=== PATIENT | female | born 1960 | race Caucasian/White ===

== ENCOUNTER 2020-03-02 07:03 | Outpatient (CLI) | payer BC, OTHER, SELFPAY ==
--- NOTE | ~2020-03-02 | MM_ITS ---
EXAMINATION: MM screening [facility] BI w mickey HISTORY: Screening mammogram TECHNIQUE: Craniocaudal and mediolateral oblique 3-D tomosynthesis images were obtained and synthetic 2-D images were generated. CAD analysis was submitted and interpreted. COMPARISON: 02/28/2019, 02/22/2018, 01/24/2018 BREAST PARENCHYMAL COMPOSITION: The breasts are heterogeneously dense, which may obscure small masses . FINDINGS: RIGHT BREAST: There is no evidence of suspicious mass, calcification, or architectural distortion to suggest malignancy. There has been no significant interval change. LEFT BREAST: An asymmetry is present in the posterior third of the inner left breast on the craniocau amirah view. IMPRESSION: 1. Left breast asymmetry on the craniocaudal view. 2. Additional mammographic views and possible breast ultrasound are recommended. BI-RADS Category 0: Incomplete: Needs additional imaging evaluation. Reviewed, dictated and finalized at location A. BREEDER IMPRESSION: 1. Left breast asymmetry on the craniocaudal view. 2. Additional mammographic views and possible breast ultrasound are recommended . BI-RADS Category 0: Incomplete: Needs additional imaging evaluation.
== END 2020-03-02 07:04 | disposition home or self-care (01) ==
PROVIDERS: PCP Internal Medicine; Visit Provider Obstetrics & Gynecology
DX: Z12.31 Encounter for screening mammogram for malignant neoplasm of breast (principal)
CPT/HCPCS: 77063; 77067

== ENCOUNTER 2020-03-05 08:56 | Outpatient (CLI) | payer BC, OTHER, SELFPAY ==
--- NOTE | ~2020-03-05 | MM_ITS ---
EXAMINATION: MM diagnostic [facility] w mickey HISTORY: Left breast asymmetry on screening mammogram TECHNIQUE: Additional 3-D tomosynthesis images of the left breast were performed and synthetic 2-D im ages were generated. CAD analysis was submitted and interpreted. COMPARISON: 03/02/2020, 02/28/2019,01/24/2018, 01/16/2017 FINDINGS: No persistent asymmetry is identified with spot compression of the left breast. There is no suspicious mass, calcification, or architectural distortion. IMPRESSION: 1. No mammographic evidence of malignancy. 2. Recommend routine screening mammography in one year. BI-RADS Category 1: Negative Reviewed, dictated and finalized at location A. 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
== END 2020-03-05 08:57 | disposition home or self-care (01) ==
LOC: CHSIMG 08:58
PROVIDERS: PCP Internal Medicine; Visit Provider Obstetrics & Gynecology
DX: R92.8 Other abnormal and inconclusive findings on diagnostic imaging of breast (principal)
CPT/HCPCS: 77061; 77065; G0279

== ENCOUNTER 2020-09-14 11:35 | Emergency (ER) | payer OTHER, SELFPAY ==
[2020-09-14 11:52] VITALS: BP 142/96; PULSE 99; RESP 16; O2SAT 96
--- NOTE | 2020-09-14 11:57 | ED.SKABFB ---
HPI - Skin/Abscess/Foreign Bdy General Chief complaint: Skin/Abscess/Foreign Body Stated complaint: CUT FINGER ON KNIFE Source: patient and family Mode of arrival: ambulatory History of Present Illness HPI narrative: 59-year-old female presents after she accidentally cut her right middle finger palmar surface on a knife causing flap laceration currently no bleeding there is some tenderness with no numbness or tingling in her finger. Patient is up-to-date with her tetanus vaccine Onset (ago): minute(s) Tetanus up to date: yes Location: R hand Severity: mild Severity scale (1-10): 1 Quality: burning Pain Consistency: constant Relieving factors: immobilization Exacerbating factors: none Context: none Associated symptoms: denies other symptoms Related Data Home Medications Medication Instructions Recorded Confirmed No Home Medications 09/14/20 09/14/20 Allergies Allergy/AdvReac Type Severity Reaction Status Date / Time Penicillins Allergy Mild Verified 08/18/10 16:23 Review of Systems Review of Systems: All systems reviewed & are unremarkable except as noted in HPI and below PMFSH Past Medical History Medical History Patient denies medical problems Social History Social History Gender identity (if verbalized by the patient): Female Sexual Orientation (if Verbalized by the Patient): Straight or Heterosexual Exam Const: General: no acute distress and alert Orientation/consciousness: patient oriented x3 Limitations: altered mental status HENMT: Head: normal to inspection Eyes: Conjunctivae: conjunctivae normal Pupils: Equal, round and reactive pupils present EOM: EOMs intact bilaterally Neck: Neck: normal visual inspection Chest: Chest palpation & inspection: normal inspection of the chest Resp: Effort & Inspection: normal respiratory effort Auscultation: clear to auscultation bilaterally Cardio: Rate: regular rate Rhythm: regular rhythm GI: Auscultation: normal bowel sounds Skin: General skin exam: normal color Other: laceration flap palmar surface of her right middle finger approximately 2cm in length Neuro: General: patient oriented x3 Extrem: General: normal to inspection Psych: Appearance: grossly normal Mental Status: mental status grossly normal Course Course Emergency Course: Dermabond applied to the finger laceration patient tolerated procedure well is up-to-date with her tetanus. Procedures Laceration Laceration 1: Date: 09/14/20 Time: 12:00 Site: upper extremity Side (If applicable): right Size (cm): 2 Description: flap Depth: simple, single layer ====== Skin Level ====== Skin layer closed with: dermabond ====== Subcutaneous Layer ====== ====== Muscle Layer ====== ====== Tendon Layer ====== Critical Care Time Critical Care Time Critical Care Time: No Discharge Plan Discharge Clinical Impression: Laceration Patient Disposition: Home, Self-Care Condition: Stable Instructions: Antibiotic Form, Laceration (ED), Skin Adhesive Care (ED) Additional Instructions: advised follow-up primary care physician if symptoms persist or worsen. Prescriptions: No Action No Home Medications RF: 0 Follow-up/Referrals: Betina Mcgee MD [Primary Care Provider] - Time of Disposition: 12:03
[2020-09-14 12:04] VITALS: TEMP 36.9
== END 2020-09-14 12:09 | disposition home or self-care (01) ==
PROVIDERS: Emergency Provider Emergency Medicine; PCP Internal Medicine
DX: S61.212A Laceration without foreign body of right middle finger without damage to nail, initial encounter (principal); W26.0XXA Contact with knife, initial encounter
CPT/HCPCS: 12001; 99282

== ENCOUNTER 2021-03-02 08:12 | Outpatient (CLI) | payer OTHER, SELFPAY ==
--- NOTE | ~2021-03-02 | CT_ITS ---
EXAMINATION: CT abdomen pelvis w con EXAM DATE: 03/02/2021 09:14 INDICATION: RLQ pain since appendix rupture and surg 09/2020 . TECHNIQUE: Spiral CT of the abdomen and pelvis was performed following intravenous injection of 100 m L Omnipaque 350. Axial, coronal and sagittal images of the abdomen and pelvis were reviewed. The do se-length product (DLP) for this examination was 279.98 mGy-cm. The exposure was tailored according to patient size (auto mA exposure control), and iterative reconstruction (ASIR) was used as additiona l dose reduction technique. There is no prior study for comparison. FINDINGS: The liver, spleen, adrenal glands and pancreas are unremarkable. Gallbladder is unremarkab le. No biliary obstruction. Portal and splenic veins are patent. Kidneys enhance symmetrically. T here is no hydronephrosis. The uterus is anteverted and morphologically normal. The bladder is un remarkable. There is no retroperitoneal or pelvic lymphadenopathy. Right lower quadrant unremarkable. Pericecal surgical change probably appendectomy. The stomach and small bowel are unremarkable. There is expected amount of colonic stool. No free intraperitoneal g as. The heart is normal in size. There are no pericardial or pleural effusions. The lung bases ar e unremarkable. The bones are unremarkable. IMPRESSION: 1. Unremarkable CT abdomen pelvis exam. Reviewed, dictated and finalized at location B. AL RUNNER
[2021-03-02 08:35] LABS: Estimated Glomerular Filt Rate > 60
== END 2021-03-02 08:13 | disposition home or self-care (01) ==
LOC: CHSIMG 08:13
PROVIDERS: PCP Internal Medicine; Visit Provider Internal Medicine
DX: R10.31 Right lower quadrant pain (principal)
CPT/HCPCS: 74177; Q9967

== ENCOUNTER 2021-03-15 08:15 | Outpatient (CLI) | payer OTHER, SELFPAY ==
--- NOTE | ~2021-03-15 | MM_ITS ---
EXAMINATION: MM screening [facility] w mickey HISTORY: Screening TECHNIQUE: Craniocaudal and mediolateral oblique 3-D tomosynthesis images were obtained and synthetic 2-D images were generated. CAD analysis was submitted and interpreted. COMPARISON: Comparison to multiple prior studies sequentially, with oldest reviewed study dated 12/20. BREAST PARENCHYMAL COMPOSITION: Breast composed of scattered areas of fibroglandular density FINDINGS: There is no evidence of suspicious mass, calcification, or architectural distortion to sugg est malignancy in either breast. There has been no suspicious interval change. IMPRESSION: 1. No mammographic evidence of malignancy. 2. Recommend routine screening mammography in one year. BI-RADS Category 1: Negative Reviewed, dictated and finalized at location A. 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
== END 2021-03-15 08:16 | disposition home or self-care (01) ==
LOC: CHSIMG 08:16
PROVIDERS: PCP Internal Medicine; Visit Provider Obstetrics & Gynecology
DX: Z12.31 Encounter for screening mammogram for malignant neoplasm of breast (principal)
CPT/HCPCS: 77063; 77067

== ENCOUNTER 2021-08-24 11:49 | Outpatient (CLI) | payer OTHER, SELFPAY ==
--- NOTE | ~2021-08-24 | XR_ITS ---
EXAMINATION: XR chest 2V 08/24/2021 12:07 INDICATION: Upper respiratory infection and cough for 6 weeks PROCEDURE: 2 view chest COMPARISON: 04/29/2015 FINDINGS: The lungs are clear. There is a calcified granuloma at the right apex. The cardiomediastina l silhouette is within normal limits. There are no pleural effusions. There is no pneumothorax susp ected. IMPRESSION: 1: NO ACUTE CARDIOPULMONARY DISEASE. Reviewed, dictated and finalized at location B.
== END 2021-08-24 11:50 | disposition home or self-care (01) ==
LOC: CHSIMG 11:54
PROVIDERS: PCP Internal Medicine; Visit Provider Nurse Practitioner Family
DX: J06.9 Acute upper respiratory infection, unspecified (principal); R05.9 Cough, unspecified
CPT/HCPCS: 71046

== ENCOUNTER 2022-03-24 09:48 | Outpatient (CLI) | payer OTHER, SELFPAY ==
--- NOTE | ~2022-03-24 | MM_ITS ---
EXAMINATION: MM screening [facility] w mickey HISTORY: Screening mammogram TECHNIQUE: Craniocaudal and mediolateral oblique 3-D tomosynthesis images were obtained and synthetic 2-D images were generated. CAD analysis was submitted and interpreted. COMPARISON: 03/15/2021 bilateral screening mammogram 03/05/2020 diagnostic left mammogram 03/02/2020, 02/28/2019 bilateral screening mammogram examinations BREAST PARENCHYMAL COMPOSITION: There are scattered areas of fibroglandular density. FINDINGS: There is no evidence of suspicious mass, calcification, or architectural distortion to sugg est malignancy in either breast. There has been no suspicious interval change. IMPRESSION: 1. No mammographic evidence of malignancy. 2. Recommend routine screening mammography in one year. BI-RADS Category 1: Negative Reviewed, dictated and finalized at location A. 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
== END 2022-03-24 09:49 | disposition home or self-care (01) ==
LOC: CHSIMG 09:54
PROVIDERS: PCP Internal Medicine; Visit Provider Internal Medicine
DX: Z12.31 Encounter for screening mammogram for malignant neoplasm of breast (principal)
CPT/HCPCS: 77063; 77067

== ENCOUNTER 2022-12-13 08:54 | Outpatient (RCR) | payer OTHER, SELFPAY ==
--- NOTE | 2022-12-13 10:40 | PTOPEVAL1 ---
Assessment and note entered by Taylor Lazo, PT Evaluation Information Assessment Status Evaluation Diagnosis Acute R Lumbar Radiculopathy Subjective Information Lor Garcia reports she started having pain in her right lower leg along the outside of her calf about 2 weeks ago. She went to her PCP and tried a low grade steroid without much success. She went back to the doctor and was put on a high dose steroid and two other medications which are helping her pain. She is noting most of her pain at night when sleeping initially but with the medication she is able to sleep better. She notes pain is worst with excessive lifting. She has had to slow down with her daily activities and has avoided yard work because of the pain. She has had back pain off and on for 10-12 years. Reported Pain Level Pain Score 3: Self Report Assessment PT Clinical Summary Lor Garcia presents with acute low back and right LE pain. 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 She objectively demonstrates decreased lumbar AROM and increased pain into extension and right lateral flexion; decreased core strength; and positive special tests indicating a lumbar nerve root irritation. She demonstrates increased radiculopathy with repeated extension and lessening of symptoms with lumbar flexion. She will benefit from skilled PT to address these limitations. Plan of Care Interventions Electrical Stimulation,Hot Pack/Cold Pack,Manual Therapy,Neuro Re-education,Patient/Caregiver Educati,Therapeutic Activities,Therapeutic Exercise PT Services Indicated Yes Treatment Frequency and 3 times a week for 12 visits Duration These treatments will address the objective and functional deficits as defined above. The patient will be advanced safely and appropriately in order for the patient to progress towards his/her prior level of function. Additional exercises will be introduced and as well as a comprehensive home exercise program upon discharge, if needed, ?to ensure carryover of functional gains achieved in the clinic. This treatment plan has been reviewed and agreement upon by the patient.
--- NOTE | 2022-12-13 10:40 | OPREHPOC ---
Outpatient Therapy Plan of Care This is a Multidisciplinary Plan of Care that may contain components documented by all disciplines (PT, OT, and ST.) PT Problem 1 PT Problem #1 Knowledge Deficit PT Goal 1 Goal The patient will demonstrate independence in a home exercise program to continue after discharge from formal PT. Target Visit 12 PT Problem 2 PT Problem #2 Pain PT Goal 1 Goal The patient will report no greater than 3/10 low back and R LE pain with all ADLs. Target Visit 12 PT Problem 3 PT Problem #3 Impaired Endurance PT Goal 1 Goal The patient will demonstrate the ability to ambulate 1,200 feet during the 6 minute walk test to return to community ambulation with minimal low back pain. Target Visit 12 PT Problem 4 PT Problem #4 Impaired Gait PT Goal 1 Goal The patient will demonstrate improved strength in the lower abdominals and back extensors to 4/5 to improve lifting ability with proper body mechanics . Target Visit 12 PT Problem 5 PT Problem #5 Impaired Functional Mobil PT Goal 1 Goal The patient will score no greater than 20% self perceived disability per the Oswestry Back Index questionnaire. Target Visit 12
--- NOTE | 2023-01-05 12:21 | PTOPPROG ---
Assessment and note entered by Taylor Lazo, PT Evaluation Information Assessment Status Progress Diagnosis Acute R lumbar radiculopathy Onset 12/08/22 Subjective Information Lor Garcia reports her right calf and low back pain continues to be present but it is more intermittent now. She notes she'll have good days and bad days. She continues to have the most pain at night causing interuptions to her sleep. She also notes inability to lift heavier things like her grandchild. She called her PCP on 01/04/23 and was ordered an x-ray. She received the results of the x-ray this morning and was told she has arthritis. She will be getting a referral for a MRI and her doctor wanted her to continue PT. Assessment PT Clinical Summary Lor Garcia has completed 12 skilled PT sessions for acute right lumbar radiculopathy. She is reporting pain continues in the outside of the right calf and right buttock that makes sleeping and lifting difficult. She does note her pain has become more intermittent. She had a x-ray performed yesterday that showed degenerative spondylosis. She objectivley demonstrates improved lumbar AROM and improved core strength. She now demonstrates a negative right straight leg raise test indicating improvement in nerve irritation. She does continue to demonstrate a positive right quadrant test, positivie right slump test, and decreased core strength. She will continue to benefit from skilled PT to further address ongoing symptoms and limitations with daily activities. Plan of Care Interventions Electrical Stimulation,Hot Pack/Cold Pack,Manual Therapy,Mechanical Traction,Neuro Re-education, Patient/Caregiver Educati,Therapeutic Activities, Therapeutic Exercise PT Services Indicated Yes Treatment Frequency and 3 times a week for 6 visits then 2 times a week Duration for 4 visits to total 10 additional visits These treatments will address the objective and functional deficits as defined above. The patient will be advanced safely and appropriately in order for the patient to progress towards his/her prior level of function. Additional exercises will be introduced and as well as a comprehensive home exercise program upon discharge, if needed, ?to ensure carryover of functional gains achieved in the clinic. This treatment plan has been reviewed and agreement upon by the patient.
--- NOTE | 2023-01-05 12:22 | OPREHPOC ---
Outpatient Therapy Plan of Care This is a Multidisciplinary Plan of Care that may contain components documented by all disciplines (PT, OT, and ST.) PT Problem 1 PT Problem #1 Knowledge Deficit PT Goal 1 Goal The patient will demonstrate independence in a home exercise program to continue after discharge from formal PT. -met to date, continue to progress Target Visit 12 Progress Met PT Problem 2 PT Problem #2 Pain PT Goal 1 Goal The patient will report no greater than 3/10 low back and R LE pain with all ADLs. -progress toward , continue Target Visit 12 Progress Partially Met PT Problem 3 PT Problem #3 Impaired Endurance PT Goal 1 Goal The patient will demonstrate the ability to ambulate 1,200 feet during the 6 minute walk test to return to community ambulation with minimal low back pain. -progress toward, continue Target Visit 12 Progress Partially Met PT Problem 4 PT Problem #4 Impaired Gait PT Goal 1 Goal The patient will demonstrate improved strength in the lower abdominals and back extensors to 4/5 to improve lifting ability with proper body mechanics . -progress toward, continue Target Visit 12 Progress Partially Met PT Problem 5 PT Problem #5 Impaired Functional Mobil PT Goal 1 Goal The patient will score no greater than 20% self perceived disability per the Oswestry Back Index questionnaire. -progress toward, continue Target Visit 12 Progress Partially Met
--- NOTE | 2023-01-19 12:05 | OPREHPOC ---
Outpatient Therapy Plan of Care This is a Multidisciplinary Plan of Care that may contain components documented by all disciplines (PT, OT, and ST.) PT Problem 1 PT Problem #1 Knowledge Deficit PT Goal 1 Goal The patient will demonstrate independence in a home exercise program to continue after discharge from formal PT. -met Target Visit 12 Progress Met PT Problem 2 PT Problem #2 Pain PT Goal 1 Goal The patient will report no greater than 3/10 low back and R LE pain with all ADLs. -progress toward , continue Target Visit 12 Progress Met PT Problem 3 PT Problem #3 Impaired Endurance PT Goal 1 Goal The patient will demonstrate the ability to ambulate 1,200 feet during the 6 minute walk test to return to community ambulation with minimal low back pain. Target Visit 12 Progress Met PT Problem 4 PT Problem #4 Impaired Gait PT Goal 1 Goal The patient will demonstrate improved strength in the lower abdominals and back extensors to 4/5 to improve lifting ability with proper body mechanics . Target Visit 12 Progress Met PT Problem 5 PT Problem #5 Impaired Functional Mobil PT Goal 1 Goal The patient will score no greater than 20% self perceived disability per the Oswestry Back Index questionnaire. Target Visit 12 Progress Met
--- NOTE | 2023-01-19 12:05 | PTOPDC ---
Assessment and note entered by Taylor Lazo, PT Evaluation Information Assessment Status Discharge Diagnosis Acute R lumbar radiculopathy Onset 12/08/22 Subjective Information Lor Garcia reports she continues to improve with her pain in her lower back and right lower extremity. She was able to kneel and give her grandson a bath yesterday and did not have an increase in pain that night. She is able to sleep now without the pain waking her but she is cautious with how she moves. She has been able to return walking about 1 mile without pain and feels she has no limitations with her daily activities. Reported Pain Level Pain Score 1: Self Report Assessment PT Clinical Summary Lor Garcia has completed 17 skilled PT visits for right lumbar radiculopathy. She is reporting a decrease in pain with occasional pain still noted with prolonged walking and frequent lifting. She objectively demonstrates improved lumbar AROM with less pain elicited, improved core strength, improved flexibility, and negative special tests. She will be discharged to an independent [facility]. Plan of Care PT Services Indicated No
== END 2023-01-19 11:32 | disposition home or self-care (01) ==
LOC: CHSPT 08:54
PROVIDERS: PCP Internal Medicine; Visit Provider Internal Medicine
DX: M54.16 Radiculopathy, lumbar region (principal)
CPT/HCPCS: 97012; 97014; 97110; 97140; 97161; G0283

== ENCOUNTER 2023-01-04 11:56 | Outpatient (CLI) | payer OTHER, SELFPAY ==
--- NOTE | ~2023-01-04 | XR_ITS ---
Lumbosacral Spine: AP and lateral views Clinical History: Pain Findings: The normal lordotic curve is maintained. The vertebral bodies and posterior elements are i ntact. There is moderate to advanced facet arthropathy throughout the lumbar spine. There are mild de generative disc changes throughout the lumbar spine. The sacroiliac joints are normally outlined. Impression: Mild to [id number] degenerative spondylosis, as above. Reviewed, dictated and finalized at location M. Impression: Mild to [id number] degenerative spondylosis, as above.
== END 2023-01-04 11:57 | disposition home or self-care (01) ==
LOC: CHSIMG 12:00
PROVIDERS: PCP Internal Medicine; Visit Provider Internal Medicine
DX: M54.16 Radiculopathy, lumbar region (principal); M43.06 Spondylolysis, lumbar region
CPT/HCPCS: 72100

== ENCOUNTER → 2023-01-14 09:06 | Outpatient (CLI) | payer OTHER, SELFPAY ==
--- NOTE | ~2023-01-14 | MR_ITS ---
EXAMINATION: MR lumbar spine wo con DATE: 01/14/2023 09:57 INDICATION: Low back pain and right lower leg pain post lifting injury one month prior TECHNIQUE: Magnetic resonance imaging (MRI) of the lumbar spine was performed without intravenous con trast. Sequences included sagittal T2-weighted FSE, sagittal T2-weighted FS FSE, sagittal T1-weighted FSE, and axial T2-weighted FSE. COMPARISON: Radiographs dated 01/04/2023 FINDINGS: 5 degrees lumbar levocurvature. L5 spondylolysis with bilateral pars interarticularis defects and 3 m m anterolisthesis L5 on S1. Vertebral body heights are normal. Mild fibrovascular and fibrofatty dege nerative endplate changes in the mid to lower lumbar spine. Moderate disc height loss at L3-L4 and L5 -S1. Mild disc height loss at L2-L3 and L4-L5 as well as T10-T11 and T11-T12. The conus medullaris te rminates at T12-L1. There is normal signal in the caudal spinal cord. Paravertebral soft tissues are unremarkable. The following disc levels are specifically discussed: T12-L1: Disc is bulging. There is moderate bilateral facet joint osteoarthritis. There is minimal lima ateral neural foraminal stenosis. There is mild central canal stenosis. L1-L2: Disc is bulging with annular fissure. There is moderate bilateral facet joint osteoarthritis. There is mild bilateral neural foraminal stenosis. There is mild central canal stenosis. L2-L3: Disc is bulging with superimposed left foraminal zone annular fissure and disc protrusion. The re is mild to moderate right and mild left facet joint osteoarthritis. There is mild right and mild t o moderate left neural foraminal stenosis. There is old central canal stenosis. L3-L4: Disc is bulging with annular fissure. There is mild bilateral facet joint osteoarthritis. Ther e is mild to moderate bilateral neural foraminal stenosis. There is mild central canal stenosis. L4-L5: Disc is bulging with annular fissure. There is moderate bilateral facet joint osteoarthritis. There is moderate bilateral neural foraminal stenosis. There is mild central canal stenosis. L5-S1: Disc is bulging with left foraminal zone annular fissure. There is mild bilateral facet joint osteoarthritis. There is mild right and mild to moderate left neural foraminal stenosis. There is no central canal stenosis. IMPRESSION: 1. Moderate lumbar spondylosis. 2. L5 spondylolysis with bilateral pars intra-articular is defects and 3 mm anterolisthesis on S1. Reviewed, dictated and finalized at location A. IMPRESSION: 1. Moderate lumbar spondylosis. 2. L5 spondylolysis with bilateral pars intra-articular is defects and 3 mm ant erolisthesis on S1.
== END ==
PROVIDERS: PCP Internal Medicine; Visit Provider Internal Medicine
DX: M43.06 Spondylolysis, lumbar region (principal); M41.87 Other forms of scoliosis, lumbosacral region
CPT/HCPCS: 72148

== ENCOUNTER 2023-03-31 07:52 | Outpatient (CLI) | payer OTHER, SELFPAY ==
--- NOTE | ~2023-03-31 | MM_ITS ---
EXAMINATION: MM screening [facility] BI w mickey HISTORY: Screening mammogram TECHNIQUE: Craniocaudal and mediolateral oblique 3-D tomosynthesis images were obtained and synthetic 2-D images were generated. CAD analysis was submitted and interpreted. COMPARISON: 03/24/2022, 03/15/2021, 03/05/2020 BREAST PARENCHYMAL COMPOSITION: The breasts are heterogeneously dense, which may obscure small masses . FINDINGS: No suspicious mass, calcification, or architectural distortion are identified in either teresa ast to suggest malignancy. There has been no suspicious interval change. IMPRESSION: 1. No mammographic evidence of malignancy. 2. Recommend routine screening mammography in one year. BI-RADS Category 1: Negative Reviewed, dictated and finalized at location A. 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
== END 2023-03-31 07:53 | disposition home or self-care (01) ==
LOC: CHSIMG 07:54
PROVIDERS: PCP Internal Medicine; Visit Provider Internal Medicine
DX: Z12.31 Encounter for screening mammogram for malignant neoplasm of breast (principal)
CPT/HCPCS: 77063; 77067

== ENCOUNTER 2024-04-19 14:23 | Outpatient (CLI) | payer MEDICARE, SELFPAY ==
--- NOTE | ~2024-04-19 | MM_ITS ---
EXAMINATION: MM screening ellis BI w mickey HISTORY: Screening TECHNIQUE: Craniocaudal and mediolateral oblique 3-D tomosynthesis images were obtained and synthetic 2-D images were generated. CAD analysis was submitted and interpreted. COMPARISON: Comparison to multiple prior studies sequentially, with oldest reviewed study dated 02/17. BREAST PARENCHYMAL COMPOSITION: Dense: The breasts are heterogeneously dense, which may obscure small masses FINDINGS: There is no evidence of suspicious mass, calcification, or architectural distortion to sugg est malignancy in either breast. There has been no suspicious interval change. IMPRESSION: 1. No mammographic evidence of malignancy. 2. Recommend routine screening mammography in one year. BI-RADS Category 1: Negative Reviewed, dictated and finalized at location [facility]. [facility]
--- OUTSIDE RECORDS SUMMARY | 2024-04-19 14:35 | XMS_ITS | Patient Health Summary ---
Author Organization [facility] [email or web address] Address [address] [place] [address] Care Team Providers Care Physical Laboratory Assistant Name Role Phone Unavailable Primary Care Provider Unavailabl e Note from [facility],non-owned Affiliates and Associated Physician Practices is amultiple site organization consisting of ambulatory clinics and hospital sitesin [place], [place], [place] and [place]. This disclosure is being madepursuant to the Care Everywhere program and may not contain all information available regarding this patient. Last updated 17.[facility] [email or web address] Allergies * Penicillins(Rash) -Medium Criticality Medications Be aware that medications may not be up to date on this document. Always verify current medications with the patient. No known medications Active Problems No known active problems Social History Tobacco Use Types Packs/Day Years Used Date Smoking Tobacco: Never Smokeless Tobacco: Never Alcohol Use Standard Drinks/Week Comments Yes 4 (1 standard drink = 0.6 oz pur e alcohol) PHQ-2 Answer Date Recorded PHQ2 TOTAL SCORE 0 09/28/2020 Sex and Gender Information Value Date Recorded Sex Assigned at Not on file Gender Identity Not on file Sexual Orientation Not on file Last Filed Vital Signs Vital Sign Reading Time Taken Comments Blood Pressure 128/84 09/28/2020 9:58 AM CDT Pulse 119 09/28/2020 9:58 AM CDT Temperature 37.7 ??C (99.9 ??F) 09/28/2020 9:58 AM CD T Respiratory Rate 16 09/28/2020 9:58 AM CDT Oxygen Saturation 98% 09/28/2020 9:58 AM CDT Inhaled Oxygen Concentration - - Weight 58.9 kg (129 lb 12.8 oz) 09/28/2020 9:58 AM CDT Height 162.6 cm (5' 4 ) 09/28/2020 9:58 AM CDT Body Mass Index 22.28 09/28/2020 9:58 AM CDT Procedures * URINALYSIS AUTO - POINT OF CARE (AMB) [facility](Performed 09/28/2020) Performed for Right lower quadrant abdominal pain Results * (ABNORMAL) URINALYSIS AUTO - POINT OF CARE (AMB) [facility] (09/28/2020 10:00 AM CDT) Clarity UA POCT cloudy [facility] Color UA POCT randy [facility] Glucose UA Negative Negative [facility] Bilirubin UA POCT Moderate(A) Negative [facility] Ketone UA >= 160(A) Negative [facility] Specific [place] UA POCT >=1.030(A) 1.015, 1.020, 1.025 [facility] Blood UA POCT Small(A) Negative [facility] pH UA 6.0 5.0 - 8.0 pH units [facility] Protein UA 300.(A) Negative [facility] Comment:>300 Urobilinogen UA 0.2 0.1 - 1.0 [facility] Nitrite UA Negative Negative [facility] Leukocyte UA Negative Negative [facility] QC Verified Yes Yes [facility] Urine URINE / Unknown 09/28/2020 1 0:00 AM CDT Rene Tapia MD LAB - POINT OF CARE ORDERABLES [facility] [address] [address], [facility], [place] [phone]
--- OUTSIDE RECORDS SUMMARY | 2024-04-19 14:35 | XMS_ITS | Clinical Summary ---
Author Organization [facility] Address [facility] [place] [place] [address] [place] [address] Care Team Providers Care Manufacturing Job Titles Name Role Phone Unavailable Primary Care Provider Unavailabl e Social History Tobacco Use Types Packs/Day Years Used Date Smoking Tobacco: Never Assessed Comments Unknown Sex and Gender Information Value Date Recorded Sex Assigned at Not on file Legal Sex Female 7:24 PM CDT Gender Identity Not on file Sexual Orientation Not on file Plan of Treatment Health Maintenance Due Date Last Done Comments Colorectal Cancer Screening Colonoscopy (10 Years) 1958 Hepatitis C 1976 DTaP, Tdap and Td Vaccines ( 1 - Tdap) 1977 Mammogram Screening 1998 Zoster Vaccines (1 of 2) 2008 Dexa Scan (General) 11/12/2023 Pneumococcal Vaccine: 65+ Ye ars (1 of 1 - PCV) 11/12/2023 COVID-19 Vaccine ( - 2023-2 5 season) 2023 Influenza Adult (#1) 2023 RSV Immunization or 60+ Years (1 - 1-dose 75+ series) 2033 Meningococcal B Vaccine Aged Out No l onger eligible based on patient's age to complete this topic Meningococcal Vaccine Aged Out No celine gi eligible based on patient's age to complete this topic Pneumococcal Vaccine: Pediat rics (0 to 5 Years) and At-Risk Patients (6 to 64 Years) Aged Out No longer eligible b ased on patient's age to complete this topic RSV Immunizations Under 20 Months Aged Out No longer eligible based on patient's age to complete this topic
--- OUTSIDE RECORDS SUMMARY | 2024-04-19 14:36 | XMS_ITS | Referral Summary ---
Author Organization [facility] [employer] Address [address] [place] [address] Care Team Providers Care Ballpoint Pen Cartridge Tester Name Role Phone Unavailable Primary Care Provider Unavailabl e Source Comments [facility] [employer],non-owned Affiliates and Associated Physician Practices is amultiple site organization consisting of ambulatory clinics and hospital sitesin [place], [place], [place] and [place]. This disclosure is being madepursuant to the Care Everywhere program and may not contain all information available regarding this patient. Last updated 17.[facility] [employer] Allergies Active Allergy Reactions Criticality Noted Date Comments Penicillins Rash Medium 09/28/2020 Medications Be aware that medications may not [...] Mass Index 22.28 09/28/2020 9:58 AM CDT Plan of Treatment Not on file
--- OUTSIDE RECORDS SUMMARY | 2024-04-19 14:36 | XMS_ITS | Clinical Summary ---
Author Organization [facility] Address [address] [place] [address] Care Team Providers Care Safety Analyst Name Role Phone Unavailable Primary Care Provider Unavailabl e Source Comments [facility],non-owned Affiliates and Associated Physician Practices is amultiple site organization consisting of ambulatory clinics and hospital sitesin [place], [place], [place] and [place]. This disclosure is being madepursuant to the Care Everywhere program and may not contain all information available regarding this patient. Last updated 17.[facility] Allergies Active Allergy Reactions Criticality Noted Date [...] 09/28/2020 9:58 AM CDT Plan of Treatment Health Maintenance Due Date Last Done Comments BONE DENSITY TESTING 1960 COLOGUARD (AGES 45-75) - COL ON CA SCREENING 1958 COLON MONITORING 1958 COLONOSCOPY - COLON CA SCREENING 1958 CT COLONOGRAPHY - COLON CA SCREENING 1958 Colorectal Cancer Screening 1958 FIT - COLON CA SCREENING 1958 FLEX SIG - COLON CA SCREENING 1958 LIPID TESTING 1958 MAMMOGRAM 1958 PAP SMEAR 1958 HIV SCREENING 1973 HEPATITIS C SCREENING 11/06/1976 DTAP/TDAP/TD VACCINES (1 - Tdap) 1977 PNEUMOCOCCAL VACCINE 50+ (1 of 1 - PCV) 2008 ZOSTER VACCINE (1 of 2) 2008 COVID-19 VACCINE (1 - 2023-2 5 season) 2023 INFLUENZA VACCINE (#1) 2023 DEPRESSION SCREENING 03/20/2024 Respiratory Syncytial Virus (RSV) Vaccine Pt: or over 60 yrs (1 - 1-dose 75+ series) 2033 HEPATITIS B VACCINE Aged Out No longe r eligible based on patient's age to complete this topic HIB VACCINE Aged Out No longer eligi ble based on patient's age to complete this topic HPV VACCINE Aged Out No longer eligi ble based on patient's age to complete this topic MENINGOCOCCAL (Group B) VACCINE Aged Out No longer eligible based on patient's age to complete this topic MENINGOCOCCAL VACCINE Aged Out No celine gi eligible based on patient's age to complete this topic
== END 2024-04-19 14:24 | disposition home or self-care (01) ==
LOC: CHSIMG 14:29
PROVIDERS: PCP Internal Medicine; Visit Provider Internal Medicine
DX: Z12.31 Encounter for screening mammogram for malignant neoplasm of breast (principal)
CPT/HCPCS: 77063; 77067

== ENCOUNTER 2024-12-18 14:27 | Outpatient (RCR) | payer MEDICARE, SELFPAY ==
--- NOTE | 2024-12-18 15:39 | OPREHPOC ---
Outpatient Therapy Plan of Care This is a Multidisciplinary Plan of Care that may contain components documented by all disciplines (PT, OT, and ST.) PT Problem 1 PT Problem #1 Knowledge Deficit PT Goal 1 Goal / Goal Update Independent and compliant with HEP. Target Visit 2 PT Problem 2 PT Problem #2 Pain PT Goal 1 Goal / Goal Update Pt to report no worse than 2/10 pain in the shoulder at worst. Target Visit 8 PT Problem 3 PT Problem #3 Impaired Strength PT Goal 1 Goal / Goal Update Pt to improve R shoulder strength to 5/5 without pain. Target Visit 8 PT Problem 4 PT Problem #4 Impaired Range of Motion PT Goal 1 Goal / Goal Update Pt to achieve symmetrical R shoulder AROM without pain. Target Visit 8 PT Problem 5 PT Problem #5 Impaired Functional Mobility PT Goal 1 Goal / Goal Update Pt to report 0% disability on Quick DASH. Pt to be able to lift 5# overhead without pain to improve her ability to reach into cabinets. Pt to carry 15# or more at elbow level to simulate cooking activities. Target Visit 8
--- NOTE | 2024-12-18 15:39 | PTOPEVAL1 ---
Assessment and note entered by Vanessa Marks, PT Evaluation Information Assessment Status Evaluation ICD-10 Condition Codes (PT) Pain in right shoulder M25.511 Onset 09/09/2024 Subjective Information Pt reports 3 months ago she tripped and fell on her shoulder and she started having pain. She had talked to some friends, did research on what could be injured and went to the doctor who told her it wasn't torn. She reports her shoulder was getting a little better but now it's plateaued. She denies sleep interference due to shoulder pain and denies NTB. She reports she's able to do most activities without much difficulty but that she does have pain with reaching behind her back and overhead, and she notes that she tends to use her L arm more for things. Reported Pain Level Pain Score 5: Self Report Assessment PT Clinical Summary Mrs. Garcia is a 64 yo female presenting to skilled PT for R shoulder pain following a fall onto the R shoulder 3 months ago. She demonstrates with mild to moderate AROM and strength deficits of the R shoulder and pain is reproduced with lifting the arm overhead and reaching behind her back. Pt is presenting with signs/symptoms consistent with R rotator cuff tendonopathy. She will benefit from skilled PT intervention to address deficits to improve her functional use of the R arm when performing daily functional activities. Plan of Care Interventions Electrical Stimulation,Hot Pack/Cold Pack,Manual Therapy,Neuro Re-education,Patient/Caregiver Education,Therapeutic Activities,Therapeutic Exercise,Self-Care/Home Management Other Interventions TPDN PT Services Indicated Yes Treatment Frequency and 2x/week for 8 visits Duration These treatments will address the objective and functional deficits as defined above. The patient will be advanced safely and appropriately in order for the patient to progress towards his/her prior level of function. Additional exercises will be introduced and as well as a comprehensive home exercise program upon discharge, if needed, ?to ensure carryover of functional gains achieved in the clinic. This treatment plan has been reviewed and agreement upon by the patient.
--- NOTE | 2025-01-15 10:53 | OPREHPOC ---
Outpatient Therapy Plan of Care This is a Multidisciplinary Plan of Care that may contain components documented by all disciplines (PT, OT, and ST.) PT Problem 1 PT Problem #1 Knowledge Deficit PT Goal 1 Goal / Goal Update Independent and compliant with HEP. Target Visit 2 Progress Met PT Problem 2 PT Problem #2 Pain PT Goal 1 Goal / Goal Update Pt to report no worse than 2/10 pain in the shoulder at worst. -progress Target Visit 8 Progress Not Met PT Problem 3 PT Problem #3 Impaired Strength PT Goal 1 Goal / Goal Update Pt to improve R shoulder strength to 5/5 without pain. -partially met Target Visit 8 Progress Partially Met PT Problem 4 PT Problem #4 Impaired Range of Motion PT Goal 1 Goal / Goal Update Pt to achieve symmetrical R shoulder AROM without pain. -met for all except flexion Target Visit 8 Progress Partially Met PT Problem 5 PT Problem #5 Impaired Functional Mobility PT Goal 1 Goal / Goal Update Pt to report 0% disability on Quick DASH. - progress Pt to be able to lift 5# overhead without pain to improve her ability to reach into cabinets. -not met Pt to carry 15# or more at elbow level to simulate cooking activities. -not met Target Visit 8 Progress Not Met
--- NOTE | 2025-01-15 10:53 | PTOPPROG ---
Assessment and note entered by Vanessa Marks, PT Evaluation Information Assessment Status Progress ICD-10 Condition Codes (PT) Pain in right shoulder M25.511 Onset 09/09/2024 Subjective Information Lor feels like she has made progress in PT but that her shoulder still isn't pain-free. She notes that she is able to reach behind her back and behind her head more easily. She reports her pain is also improved compared to when she started PT and that it gets to 3/10 at worst with certain movements. She also feels like the dry needling helped. Assessment PT Clinical Summary Mrs. Garcia has attended 8 skilled PT visits addressing R shoulder pain. Since beginning therapy she has made improvements in her R shoulder AROM and strength, however she still demonstrates mild deficits in flexion AROM and flexion and ER strength. She will continue to benefit from skilled PT intervention to make further progress toward goals and further reduce pain. Plan of Care Interventions Electrical Stimulation,Hot Pack/Cold Pack,Manual Therapy,Neuro Re-education,Patient/Caregiver Education,Therapeutic Activities,Therapeutic Exercise,Self-Care/Home Management Other Interventions TPDN PT Services Indicated Yes Treatment Frequency and Continue PT 1x/week for 4 additional visits Duration These treatments will address the objective and functional deficits as defined above. The patient will be advanced safely and appropriately in order for the patient to progress towards his/her prior level of function. Additional exercises will be introduced and as well as a comprehensive home exercise program upon discharge, if needed, ?to ensure carryover of functional gains achieved in the clinic. This treatment plan has been reviewed and agreement upon by the patient.
--- NOTE | 2025-01-29 15:00 | OPREHPOC ---
Outpatient Therapy Plan of Care This is a Multidisciplinary Plan of Care that may contain components documented by all disciplines (PT, OT, and ST.) PT Problem 1 PT Problem #1 Knowledge Deficit PT Goal 1 Goal / Goal Update Independent and compliant with HEP. Target Visit 2 Progress Met PT Problem 2 PT Problem #2 Pain PT Goal 1 Goal / Goal Update Pt to report no worse than 2/10 pain in the shoulder at worst. -progress Target Visit 8 Progress Not Met PT Problem 3 PT Problem #3 Impaired Strength PT Goal 1 Goal / Goal Update Pt to improve R shoulder strength to 5/5 without pain. -met for all except ER Target Visit 8 Progress Partially Met PT Problem 4 PT Problem #4 Impaired Range of Motion PT Goal 1 Goal / Goal Update Pt to achieve symmetrical R shoulder AROM without pain. -met Target Visit 8 Progress Met PT Problem 5 PT Problem #5 Impaired Functional Mobility PT Goal 1 Goal / Goal Update Pt to report 0% disability on Quick DASH. - progress Pt to be able to lift 5# overhead without pain to improve her ability to reach into cabinets. -met Pt to carry 15# or more at elbow level to simulate cooking activities. -met Target Visit 8 Progress Partially Met
--- NOTE | 2025-01-29 15:00 | PTOPDC ---
Assessment and note entered by Vanessa Marks, PT Evaluation Information Assessment Status Discharge ICD-10 Condition Codes (PT) Pain in right shoulder M25.511 Onset 09/09/2024 Subjective Information Lor feels like her shoulder is manageable at this point. She feels like it's gotten better and while some pain is still present, it's improved compared to when she started PT. She feels good enough to continue doing her HEP on her own at this time and plans to return to the her doctor if her pain worsens or persists through the holidays . She would like to avoid a steroid shot at this point since the pain is manageable. Reported Pain Level Pain Score 1: Self Report Assessment PT Clinical Summary Mrs. Garcia has attended 10 skilled PT visits addressing R shoulder pain. Since beginning PT she has made good improvements in her R shoulder ROM and strength as well as functional use of the arm. She demonstrates symmetrical AROM compared to the L shoulder and demonstrates sufficient R shoulder strength in all mm groups except for external rotation which is only slightly weak. She demonstrates the ability to lift and carry objects at elbow level and overhead to perform daily activities. She also demonstrates a reduction in Quick DASH score and a reduction in her overall shoulder pain. She will be discharged from skilled PT this date with education to continue her HEP and to return to MD if symptoms recur and/or worsen. Plan of Care PT Services Indicated No
== END 2025-01-29 20:00 | disposition home or self-care (01) ==
LOC: CHSPT 14:27
PROVIDERS: PCP Internal Medicine; Visit Provider Internal Medicine
DX: M25.511 Pain in right shoulder (principal)
CPT/HCPCS: 97014; 97110; 97112; 97140; 97161; 97530; G0283